=== PATIENT | female | born 1945 | race Caucasian/White ===

== ENCOUNTER 2018-07-02 14:44 | Emergency (ER) | payer OTHER ==
[~2018-07-02] VITALS: Ht 139.7 cm; Wt 40.8 kg
[~2018-07-02 14:44] MED LIST: ASPIR 8181 MG; LOSARTAN POTAS100 MG; METOPROLOL SUC100 MG; SYNTHROID88 MCG
== END 2018-07-02 17:45 | disposition home or self-care (01) ==
LOC: ER 14:44
DX: M13.852 Other specified arthritis, left hip (principal); M13.851 Other specified arthritis, right hip; M25.551 Pain in right hip; M25.552 Pain in left hip